=== PATIENT | female | born 1980 | race Asian ===

== ENCOUNTER 2017-01-12 19:17 | Inpatient (IN) | payer SELFPAY ==
[~2017-01-12] VITALS: Ht 170.2 cm; Wt 83.9 kg
[2017-01-13] MEDS ORDERED: LR 1,000 ML IV SCH (03:25)
[2017-01-13] MEDS ORDERED: NALBUPHINE HCL 10 MG/ML AMP IVP PRN ×2 (03:30→13:00)
[2017-01-13] MEDS ORDERED: TERBUTALINE SULFATE 1 MG/ML VIAL SUBCUT ONE (03:30)
[2017-01-13] MEDS ORDERED: LR 500 ML IV ONE (03:46)
[2017-01-13 03:57] LABS: EOSINOPHILS % (AUTO) 3.2 % (0.0-4.0); HEMATOCRIT 35.4 % (36-48); HEMOGLOBIN 11.3 g/dL (12.0-16.0); LYMPHOCYTES % (AUTO) 21.3 % (20.5-51.5); MEAN CORPUSCULAR HEMOGLOBIN 28 pg (27-31); MEAN CORPUSCULAR HGB CONC 32 % (32-36); MEAN CORPUSCULAR VOLUME 87 fL (79.0-98.0); MONOCYTES % (AUTO) 6.9 % (1.7-9.3); PLATELET COUNT (AUTO) 140 K/uL (130-430); RED BLOOD CELL COUNT(AUTO) 4.07 MIL/uL (4.2-6.2); RED CELL DISTRIBUTION WIDTH 15.4 % (9.0-15.0); WHITE BLOOD COUNT (AUTO) 10.2 K/uL (4.8-10.8)
[2017-01-13 03:58] LABS: BASOPHILS # (AUTO) 0.1 K/uL (0.0-0.2); BASOPHILS % (AUTO) 0.6 % (0.0-2.0); EOSINOPHILS # (AUTO) 0.3 K/uL (0.0-0.4); LYMPHOCYTES # (AUTO) 2.2 K/uL (1.0-5.5); MONOCYTES # (AUTO) 0.7 K/uL (0.0-1.0); NEUTROPHILS # (AUTO) 6.9 K/uL (1.8-7.7)
[2017-01-13] MEDS ORDERED: ePHEDrine sulfate 50 MG/ML VIAL IVP PRN ×2 (04:00→13:00)
[2017-01-13] MEDS ORDERED: fentaNYL CITRATE/PF 100 MCG/2 ML AMP IVP ONE ×2 (04:00→07:10)
[2017-01-13] MEDS ORDERED: FENT2mCg/mL-ROPIVA0.2%/NS EPID 150 ML EP SCH (04:00)
[2017-01-13] MEDS ORDERED: fentaNYL CITRATE/PF 100 MCG/2 ML AMP ONE (04:03)
[2017-01-13] MEDS ORDERED: FENT2mCg/mL-ROPIVA0.2%/NS EPID 150 ML EP ONE (04:03)
[2017-01-13 06:00] VITALS: BP_SYST 117
[2017-01-13] MEDS: OXYTOCIN/NORMAL SALINE 1,000 ML IV SCH ×2 (06:11→22:04)
[2017-01-13] MEDS ORDERED: DIPHENHYDRAMINE INJ 50 MG/ML VIAL IVP ONE (07:10)
[2017-01-13] MEDS ORDERED: LIDOCAINE PF 2%, 40 MG/2 ML AMP INJ ONE (07:10)
[2017-01-13] MEDS ORDERED: METOCLOPRAMIDE HCL 10 MG/2 ML VIAL IVP ONE (07:10)
[2017-01-13] MEDS ORDERED: MORPHINE SULFATE 10MG/10ML PF AMP EP ONE (07:10)
[2017-01-13] MEDS ORDERED: NS IRRIG SOLN 1000 ML IR ONE (07:10)
[2017-01-13] MEDS ORDERED: CEFAZOLIN 2 GM IVPB PREMIX 50 ML IV ONE ×3 (07:10→11:48)
[2017-01-13] MEDS ORDERED: LR 1,000 ML IV.SOLN IV ONE (07:10)
[2017-01-13] MEDS ORDERED: OXYTOCIN 10 UNIT/ML VIAL IV ONE (07:10)
[2017-01-13] MEDS ORDERED: DEXAMETHASONE SOD PHOSPHATE 4 MG/ML VIAL IVP ONE (07:10)
[2017-01-13] MEDS ORDERED: MIDAZOLAM HCL 5 MG/5 ML VIAL IVP ONE (07:10)
[2017-01-13] MEDS ORDERED: OXYTOCIN/NORMAL SALINE 1,000 ML IV ONE (11:45)
[2017-01-13] MEDS ORDERED: ANUSOL 1 EA SUPP.RECT (PREPARATION H) RC PRN (11:45)
[2017-01-13] MEDS ORDERED: SIMETHICONE 80 MG TAB.CHEW PO PRN (11:45)
[2017-01-13] MEDS ORDERED: LANOLIN 7 GM OINT. TP PRN (11:45)
[2017-01-13] MEDS ORDERED: HYDROcodone/ACETAMIN 5-325 MG TAB (NORCO/ VICODIN) PO PRN (11:45)
[2017-01-13] MEDS ORDERED: OXYCODONE/ACETAMINOPHEN 5-325 TABLET PO PRN ×2 (11:45)
[2017-01-13] MEDS ORDERED: MEASLES,MUMPS&RUBELLA VACC/PF 12500 UNIT/0.5 ML VIAL SUBQ PRN (11:45)
[2017-01-13] MEDS ORDERED: LR 1,000 ML IV ONE (12:47)
[2017-01-13 12:50] VITALS: BP_SYST 114
[2017-01-13] MEDS ORDERED: NALOXONE HCL 0.4 MG/ML AMP (NARCAN) IVP PRN (13:00)
[2017-01-13] MEDS ORDERED: fentaNYL CITRATE/PF 100 MCG/2 ML AMP IVP PRN (13:00)
[2017-01-13] MEDS ORDERED: ONDANSETRON HCL 4 MG/2 ML VIAL IVP PRN ×2 (13:00)
[2017-01-13] MEDS ORDERED: DIPHENHYDRAMINE INJ 50 MG/ML VIAL IVP PRN (13:00)
[2017-01-13] MEDS ORDERED: KETOROLAC TROMETHAMINE 30 MG VIAL IM PRN (13:00)
[2017-01-13] MEDS: CEFAZOLIN 1 GM IVPB PREMIX 50 ML IV SCH ×2 (18:13→23:59)
[2017-01-13] MEDS ORDERED: TEMAZEPAM 15 MG CAPSULE PO PRN (21:00)
[2017-01-14] MEDS: IBUPROFEN 600 MG TABLET PO SCH ×4 (05:42→23:53)
[2017-01-14] MEDS: CEFAZOLIN 1 GM IVPB PREMIX 50 ML IV SCH (05:42)
[2017-01-14 07:06] LABS: BASOPHILS % (AUTO) 0.3 % (0.0-2.0); EOSINOPHILS # (AUTO) 0.1 K/uL (0.0-0.4); EOSINOPHILS % (AUTO) 0.9 % (0.0-4.0); HEMATOCRIT 28.6 % (36-48); HEMOGLOBIN 9.2 g/dL (12.0-16.0); LYMPHOCYTES # (AUTO) 2.3 K/uL (1.0-5.5); LYMPHOCYTES % (AUTO) 18.3 % (20.5-51.5); MEAN CORPUSCULAR HEMOGLOBIN 28 pg (27-31); MEAN CORPUSCULAR HGB CONC 32 % (32-36); MEAN CORPUSCULAR VOLUME 87 fL (79.0-98.0); MONOCYTES # (AUTO) 0.8 K/uL (0.0-1.0); MONOCYTES % (AUTO) 6.3 % (1.7-9.3); NEUTROPHILS # (AUTO) 9.6 K/uL (1.8-7.7); NEUTROPHILS % (AUTO) 74.2 % (40.0-70.0); PLATELET COUNT (AUTO) 117 K/uL (130-430); RED CELL DISTRIBUTION WIDTH 15.1 % (9.0-15.0)
[2017-01-14 07:16] LABS: WHITE BLOOD COUNT (AUTO) 12.8 K/uL (4.8-10.8)
[2017-01-14] MEDS: DOCUSATE SODIUM 100 MG CAPSULE PO PRN (22:55)
[2017-01-15] MEDS: IBUPROFEN 600 MG TABLET PO SCH ×3 (06:04→17:57)
[2017-01-15] MEDS: DOCUSATE SODIUM 100 MG CAPSULE PO PRN ×2 (08:13→22:00)
[2017-01-16] MEDS: IBUPROFEN 600 MG TABLET PO SCH ×2 (00:01→06:07)
== END 2017-01-16 11:32 | disposition home or self-care (01) | DRG 766 ==
LOC: SPU 01-13 02:20
PROVIDERS: ADMIT Obstetrics & Gynecology; ATTEND Obstetrics & Gynecology
PROC: 10D00Z1 Extraction of Products of Conception, Low, Open Approach (ICD-10-PCS; principal; 2017-01-13 12:00)
DX: O77.9 Labor and delivery complicated by fetal stress, unspecified (principal); O48.1 Prolonged pregnancy; Z37.0 Single live birth; Z3A.40 40 weeks gestation of pregnancy
CPT/HCPCS: 36415; 81002-TC; 85025; 86592; 86886; 86900; 86901; 94760; J0690; J1100; J1200; J1885; J2001; J2250; J2274; J2590; J2765; J3010; J7120